=== PATIENT | female | born 1960 | race Caucasian/White ===

== ENCOUNTER → 2016-10-30 | Outpatient (CLI) | payer MEDICARE, MEDICAID ==
[~2016-10-30] MED LIST: ACYCLOVIR800 MG PO; AMBIEN10 MG PO; AMLODIPINE5 MG PO; BP MED; COLACE100 M1 PO; COZAAR; COZAAR50 MG PO; DANTRIUM PO; DURAGESIC75 MCG/PAT TD; GABAPENTIN100 MG PO; HCTZ 25MG25 MG PO; IMITREX100 M1 PO; LISINOPRIL/HCTZ1 TA2 PO; LISINOPRIL20 MG PO; MIRAPEX ER0.75 MG PO; NEUPRO1 EAC1 TD; PERCOCET 325 MG1 TA2 PO; PERCOCET 325 MG1 TAB PO; PHENERGAN W/CO120 M1 PO; POTASSIUM GLUC550 M1; ROBAXIN500 MG PO; SAVELLA50 MG PO; TAMIFLU75 MG PO; VITAMIN D 50,1.25 MG PO
== END ==
LOC: RAD 13:09
DX: Z98.1 Arthrodesis status (principal)

== ENCOUNTER 2017-03-13 13:00 | Outpatient (RCR) | payer MEDICARE, MEDICAID ==
[2016-10-03 13:50] VITALS: BP 122/66
== END 2017-03-13 23:00 | disposition home or self-care (01) ==
LOC: PT 13:00
DX: M54.5 Low back pain (principal)

== ENCOUNTER → 2017-07-23 | Outpatient (CLI) | payer MEDICARE, MEDICAID ==
[2016-10-03 13:50] VITALS: BP 122/66
== END ==
LOC: LAB 15:40
DX: Z86.39 Personal history of other endocrine, nutritional and metabolic disease (principal); E55.9 Vitamin D deficiency, unspecified; M25.50 Pain in unspecified joint; M54.9 Dorsalgia, unspecified

== ENCOUNTER → 2017-07-31 | Outpatient (CLI) | payer MEDICARE, MEDICAID ==
[2016-10-03 13:50] VITALS: BP 122/66
== END ==
LOC: LAB 13:31
DX: Z12.11 Encounter for screening for malignant neoplasm of colon (principal)

== ENCOUNTER → 2017-09-26 | Outpatient (CLI) | payer MEDICARE, MEDICAID ==
[2016-10-03 13:50] VITALS: BP 122/66
== END ==
LOC: RAD 13:43
DX: M25.552 Pain in left hip (principal); Z91.040 Latex allergy status; Z98.890 Other specified postprocedural states

== ENCOUNTER → 2017-10-22 | Outpatient (CLI) | payer MEDICARE, MEDICAID ==
[2016-10-03 13:50] VITALS: BP 122/66
[2017-10-22 08:44] LABS: HEMATOCRIT 41.3 % (37.0-47.0); HEMOGLOBIN 13.3 g/dL (12.5-16.0); MEAN PLATELET VOLUME 9.7 fl (7.4-10.4); RED BLOOD COUNT 4.65 M/mm3 (4.10-5.30); RED CELL DISTRIBUTION WIDTH 13.4 % (11.5-14.5); WHITE BLOOD COUNT 8.2 K/mm3 (4.8-10.8)
[2017-10-22 08:53] LABS: ALBUMIN 3.7 g/dL (3.5-5.0); BUN/CREATININE RATIO 17.2 (6.0-26.0); CALCIUM 9.1 mg/dL (8.4-10.2); POTASSIUM 3.6 mmol/L (3.6-5.0); TOTAL BILIRUBIN 0.5 mg/dL (0.2-1.3); TOTAL PROTEIN 6.4 g/dL (6.3-8.2)
[2017-10-23 22:06] LABS: ANA SCREEN with REFLEX Negative (Negative)
== END ==
LOC: LAB 07:33
PROVIDERS: Family Medicine
DX: I10 Essential (primary) hypertension (principal); E66.9 Obesity, unspecified

== ENCOUNTER → 2017-11-14 | Outpatient (CLI) | payer MEDICARE, MEDICAID ==
[2016-10-03 13:50] VITALS: BP 122/66
[2017-11-14 16:26] LABS: URINE APPEARANCE HAZY; URINE COLOR YELLOW
[2017-11-14 16:27] LABS: PH-URINE 5.5 (5.0 - 8.0); URINE BILIRUBIN NEGATIVE (NEGATIVE); URINE BLOOD NEGATIVE (NEGATIVE); URINE GLUCOSE NEGATIVE (NEGATIVE); URINE KETONE NEGATIVE (NEGATIVE); URINE LEUKOCYTE ESTERASE TRACE (NEGATIVE); URINE NITRATE NEGATIVE (NEGATIVE); URINE PROTEIN(semi-quant) NEGATIVE (NEGATIVE); URINE UROBILINOGEN NORMAL (NORMAL)
== END ==
LOC: RAD 14:33
PROVIDERS: Family Medicine
DX: N20.0 Calculus of kidney (principal); R10.9 Unspecified abdominal pain

== ENCOUNTER → 2018-05-30 | Outpatient (CLI) | payer MEDICARE ==
[2016-10-03 13:50] VITALS: BP 122/66
[2018-05-30 18:07] LABS: EOS # 0.2 (0.04-0.40); EOS % 3.1 % (1.0-5.0); HEMOGLOBIN 13.4 g/dL (12.5-16.0); LYMPH# 2.6 (1.50-4.00); MEAN CELL VOLUME 89 fl (78-100); MEAN CORPUSCULAR HEMOGLOBIN 29 pg (27-31); MEAN CORPUSCULAR HGB CONC 33 g/dL (33-37); MEAN PLATELET VOLUME 9.5 fl (7.4-10.4); MONO # 0.6 (0.20-0.80); NEU # 4.3 (1.40-6.50); PLATELET COUNT 248 K/mm3 (130-400); RED BLOOD COUNT 4.59 M/mm3 (4.10-5.30); RED CELL DISTRIBUTION WIDTH 13.6 % (11.5-14.5); WHITE BLOOD COUNT 7.8 K/mm3 (4.8-10.8)
[2018-05-30 18:22] LABS: ALBUMIN 4.2 g/dL (3.5-5.0); CALCIUM 9.8 mg/dL (8.4-10.2); POTASSIUM 4.1 mmol/L (3.6-5.0); TOTAL BILIRUBIN 0.4 mg/dL (0.2-1.3); TOTAL PROTEIN 7.3 g/dL (6.3-8.2)
[2018-05-30 18:45] LABS: URINE APPEARANCE HAZY; URINE BILIRUBIN NEGATIVE (NEGATIVE); URINE BLOOD TRACE (NEGATIVE); URINE COLOR YELLOW; URINE GLUCOSE NEGATIVE (NEGATIVE); URINE KETONE NEGATIVE (NEGATIVE); URINE LEUKOCYTE ESTERASE NEGATIVE (NEGATIVE); URINE NITRATE NEGATIVE (NEGATIVE); URINE PROTEIN(semi-quant) NEGATIVE (NEGATIVE); URINE UROBILINOGEN NORMAL (NORMAL)
== END ==
LOC: LAB 17:44
PROVIDERS: Nurse Practitioner Family
DX: E11.9 Type 2 diabetes mellitus without complications (principal); I10 Essential (primary) hypertension; R25.2 Cramp and spasm

== ENCOUNTER → 2018-06-12 | Outpatient (CLI) | payer MEDICARE ==
[2016-10-03 13:50] VITALS: BP 122/66
== END ==
LOC: RAD 13:36
DX: M79.672 Pain in left foot (principal)

== ENCOUNTER → 2019-02-26 | Outpatient (CLI) | payer MEDICARE, MEDICAID ==
[2016-10-03 13:50] VITALS: BP 122/66
[2019-02-26 15:33] LABS: URINE APPEARANCE HAZY; URINE BILIRUBIN NEGATIVE (NEGATIVE); URINE BLOOD NEGATIVE (NEGATIVE); URINE COLOR YELLOW; URINE GLUCOSE NEGATIVE (NEGATIVE); URINE KETONE NEGATIVE (NEGATIVE); URINE LEUKOCYTE ESTERASE NEGATIVE (NEGATIVE); URINE NITRATE NEGATIVE (NEGATIVE); URINE PROTEIN(semi-quant) NEGATIVE (NEGATIVE); URINE UROBILINOGEN NORMAL (NORMAL)
== END ==
LOC: RAD 14:22 → LAB 14:22
PROVIDERS: Family Medicine
DX: K76.0 Fatty (change of) liver, not elsewhere classified (principal); N39.0 Urinary tract infection, site not specified; N20.0 Calculus of kidney; K22.9 Disease of esophagus, unspecified; Z87.442 Personal history of urinary calculi

== ENCOUNTER → 2019-04-21 | Outpatient (CLI) | payer MEDICARE, MEDICAID ==
[2016-10-03 13:50] VITALS: BP 122/66
[2019-04-21 14:17] LABS: EOS # 0.2 (0.04-0.40); EOS % 3.1 % (1.0-5.0); HEMATOCRIT 42.9 % (37.0-47.0); LYMPH# 2.5 (1.50-4.00); MEAN CELL VOLUME 91 fl (78-100); MEAN CORPUSCULAR HEMOGLOBIN 30 pg (27-31); MEAN CORPUSCULAR HGB CONC 33 g/dL (33-37); MEAN PLATELET VOLUME 9.6 fl (7.4-10.4); MONO # 0.7 (0.20-0.80); PLATELET COUNT 270 K/mm3 (130-400); RED BLOOD COUNT 4.72 M/mm3 (4.10-5.30); RED CELL DISTRIBUTION WIDTH 13.6 % (11.5-14.5); WHITE BLOOD COUNT 7.4 K/mm3 (4.8-10.8)
[2019-04-21 14:24] LABS: ALBUMIN 4.1 g/dL (3.5-5.0); POTASSIUM 3.9 mmol/L (3.5-5.1)
[2019-04-21 14:25] LABS: CALCIUM 10.1 mg/dL (8.3-10.5)
[2019-04-21 14:27] LABS: TOTAL PROTEIN 7.3 g/dL (6.4-8.3)
[2019-04-21 14:29] LABS: TOTAL BILIRUBIN 0.4 mg/dL (0.2-1.2)
== END ==
LOC: RAD 14:04
PROVIDERS: Family Medicine
DX: R51 Headache (principal); E11.9 Type 2 diabetes mellitus without complications; I10 Essential (primary) hypertension; E78.5 Hyperlipidemia, unspecified

== ENCOUNTER → 2019-11-26 | Outpatient (CLI) | payer MEDICARE ==
[2016-10-03 13:50] VITALS: BP 122/66
== END ==
LOC: RAD 10:04
DX: M54.5 Low back pain (principal); G89.29 Other chronic pain; M25.551 Pain in right hip

== ENCOUNTER 2019-12-26 18:56 | Emergency (ER) | payer MEDICARE ==
[~2019-12-26] VITALS: Ht 167.6 cm; Wt 100.0 kg
[2019-12-26] MEDS ORDERED: METFORMIN ER500 MG PO (19:03)
[2019-12-26] MEDS ORDERED: LISINOPRIL AND1 TA2 PO (19:04)
[2019-12-26] MEDS ORDERED: PROAIR HFA0.09 MG/AC IH (19:05)
[2019-12-26 19:27] LABS: EOS # 0.2 (0.04-0.40); EOS % 2.2 % (1.0-5.0); HEMATOCRIT 45.3 % (37.0-47.0); HEMOGLOBIN 15.1 g/dL (12.5-16.0); LYMPH# 4.2 (1.50-4.00); MEAN CELL VOLUME 90 fl (78-100); MEAN CORPUSCULAR HEMOGLOBIN 30 pg (27-31); MEAN CORPUSCULAR HGB CONC 33 g/dL (33-37); MEAN PLATELET VOLUME 10.4 fl (7.4-10.4); MONO # 0.8 (0.20-0.80); NEU # 4.2 (1.40-6.50); PLATELET COUNT 317 K/mm3 (130-400); RED BLOOD COUNT 5.06 M/mm3 (4.10-5.30); RED CELL DISTRIBUTION WIDTH 12.6 % (11.5-14.5); WHITE BLOOD COUNT 9.4 K/mm3 (4.8-10.8)
[2019-12-26] MEDS ORDERED: CLINDAMYCIN PHOSPH2% VG (20:48)
[2019-12-26 21:07] VITALS: BP 142/82
== END 2019-12-26 21:07 | disposition home or self-care (01) ==
LOC: ED 18:56
PROVIDERS: Family Medicine
DX: L50.0 Allergic urticaria (principal); T37.3X5A Adverse effect of other antiprotozoal drugs, initial encounter; E11.9 Type 2 diabetes mellitus without complications; I10 Essential (primary) hypertension; K21.9 Gastro-esophageal reflux disease without esophagitis; G43.909 Migraine, unspecified, not intractable, without status migrainosus; M54.9 Dorsalgia, unspecified; G89.29 Other chronic pain; Z79.84 Long term (current) use of oral hypoglycemic drugs; Z79.899 Other long term (current) drug therapy
CPT/HCPCS: J1200; J2920; J3490

== ENCOUNTER → 2020-02-24 | Outpatient (CLI) | payer MEDICARE ==
[~2020-02-24] MED LIST changes: +CLINDAMYCIN PHOSPH2% VG; +LISINOPRIL AND1 TA2 PO; +METFORMIN ER500 MG PO; +PROAIR HFA0.09 MG/AC IH
[2020-02-24 15:19] LABS: EOS # 0.1 (0.04-0.40); EOS % 1.7 % (1.0-5.0); HEMATOCRIT 42.2 % (37.0-47.0); HEMOGLOBIN 14.3 g/dL (12.5-16.0); LYMPH# 2.4 (1.50-4.00); MEAN CELL VOLUME 87 fl (78-100); MEAN CORPUSCULAR HEMOGLOBIN 30 pg (27-31); MEAN CORPUSCULAR HGB CONC 34 g/dL (33-37); MEAN PLATELET VOLUME 9.7 fl (7.4-10.4); MONO # 0.6 (0.20-0.80); NEU # 3.3 (1.40-6.50); PLATELET COUNT 258 K/mm3 (130-400); RED BLOOD COUNT 4.84 M/mm3 (4.10-5.30); RED CELL DISTRIBUTION WIDTH 12.7 % (11.5-14.5); WHITE BLOOD COUNT 6.5 K/mm3 (4.8-10.8)
[2020-02-24 15:45] LABS: ALBUMIN 4.2 g/dL (3.5-5.0); POTASSIUM 3.5 mmol/L (3.5-5.1)
[2020-02-24 15:46] LABS: CALCIUM 9.9 mg/dL (8.3-10.5)
[2020-02-24 15:49] LABS: TOTAL BILIRUBIN 0.5 mg/dL (0.2-1.2)
== END ==
LOC: LAB 14:52
PROVIDERS: Family Medicine
DX: R42 Dizziness and giddiness (principal); R53.83 Other fatigue

== ENCOUNTER 2020-03-25 10:00 | Outpatient (RCR) | payer MEDICARE | END 2020-03-25 10:30 | disposition still patient (30) | LOC: PT 10:00 | DX: Z98.890 Other specified postprocedural states (principal) ==

== ENCOUNTER → 2020-04-02 | Outpatient (CLI) | payer MEDICARE | LOC: LAB 09:09 | DX: E11.9 Type 2 diabetes mellitus without complications (principal) ==

== ENCOUNTER → 2020-08-04 | Outpatient (CLI) | payer MEDICARE ==
[2020-08-04 12:45] LABS: EOS # 0.2 (0.04-0.40); EOS % 2.7 % (1.0-5.0); HEMATOCRIT 43.2 % (37.0-47.0); HEMOGLOBIN 14.2 g/dL (12.5-16.0); LYMPH# 3.3 (1.50-4.00); MEAN CELL VOLUME 90 fl (78-100); MEAN CORPUSCULAR HEMOGLOBIN 30 pg (27-31); MEAN CORPUSCULAR HGB CONC 33 g/dL (33-37); MEAN PLATELET VOLUME 9.4 fl (7.4-10.4); MONO # 0.6 (0.20-0.80); NEU # 2.9 (1.40-6.50); PLATELET COUNT 277 K/mm3 (130-400); RED BLOOD COUNT 4.82 M/mm3 (4.10-5.30); RED CELL DISTRIBUTION WIDTH 12.7 % (11.5-14.5); WHITE BLOOD COUNT 6.9 K/mm3 (4.8-10.8)
[2020-08-04 12:51] LABS: POTASSIUM 3.4 mmol/L (3.5-5.1)
[2020-08-04 12:52] LABS: ALBUMIN 4.4 g/dL (3.5-5.0)
[2020-08-04 12:53] LABS: CALCIUM 9.7 mg/dL (8.3-10.5)
[2020-08-04 12:54] LABS: TOTAL PROTEIN 7.7 g/dL (6.4-8.3)
[2020-08-04 12:56] LABS: TOTAL BILIRUBIN 0.4 mg/dL (0.2-1.2)
[2020-08-04 13:01] LABS: MAGNESIUM 2.05 mg/dL (1.60-2.60)
[2020-08-04 13:21] LABS: URINE APPEARANCE CLEAR; URINE BILIRUBIN NEGATIVE (NEGATIVE); URINE BLOOD NEGATIVE (NEGATIVE); URINE COLOR YELLOW; URINE GLUCOSE NEGATIVE (NEGATIVE); URINE KETONE NEGATIVE (NEGATIVE); URINE LEUKOCYTE ESTERASE TRACE (NEGATIVE); URINE NITRATE NEGATIVE (NEGATIVE); URINE PROTEIN(semi-quant) NEGATIVE (NEGATIVE); URINE UROBILINOGEN NORMAL (NORMAL)
[2020-08-04 13:46] LABS: ERYTHROCYTE SEDIMENTATION RATE 5 mm/hr (0-30)
== END ==
LOC: LAB 12:20
PROVIDERS: Internal Medicine
DX: I10 Essential (primary) hypertension (principal); K90.9 Intestinal malabsorption, unspecified; E11.9 Type 2 diabetes mellitus without complications

== ENCOUNTER 2020-09-27 14:30 | Outpatient (RCR) | payer MEDICARE | END 2020-10-11 | disposition home or self-care (01) | LOC: PT | DX: M76.31 Iliotibial band syndrome, right leg (principal) ==

== ENCOUNTER → 2020-12-01 | Outpatient (CLI) | payer MEDICARE, MEDICAID ==
[~2020-12-01] MED LIST changes: +COMBIVENT RESPI1 SPR IH; +OMEPRAZOLE40 MG PO; +ROPINIROLE HYD0.5 MG
[2020-12-01 20:51] LABS: URINE APPEARANCE CLEAR; URINE BILIRUBIN NEGATIVE (NEGATIVE); URINE BLOOD NEGATIVE (NEGATIVE); URINE COLOR YELLOW; URINE GLUCOSE 50 mg/dL mg/dL (NEGATIVE); URINE KETONE NEGATIVE (NEGATIVE); URINE LEUKOCYTE ESTERASE NEGATIVE (NEGATIVE); URINE NITRATE NEGATIVE (NEGATIVE); URINE PROTEIN(semi-quant) NEGATIVE (NEGATIVE); URINE UROBILINOGEN NORMAL (NORMAL)
[2020-12-01 20:52] LABS: ALBUMIN 4.4 g/dL (3.5-5.0); ALT/SGPT 30 U/L (0-55); AST-SGOT 28 U/L (5-34); CARBON DIOXIDE 28 mmol/L (22-29); GLUCOSE 261 mg/dL (65-105); POTASSIUM 3.5 mmol/L (3.5-5.1); SODIUM 140 mmol/L (136-145); TOTAL BILIRUBIN 0.4 mg/dL (0.2-1.2); TOTAL PROTEIN 7.6 g/dL (6.4-8.3); TROPONIN-I < 0.03 ng/mL (<0.030)
[2020-12-01 21:01] LABS: EOS % 1.7 % (1.0-5.0); HEMATOCRIT 45.4 % (37.0-47.0); HEMOGLOBIN 14.6 g/dL (12.5-16.0); LYMPH# 2.6 (1.50-4.00); MEAN CELL VOLUME 90 fl (78-100); MEAN CORPUSCULAR HEMOGLOBIN 29 pg (27-31); MEAN CORPUSCULAR HGB CONC 32 g/dL (33-37); MEAN PLATELET VOLUME 11.3 fl (7.4-10.4); MONO # 0.6 (0.20-0.80); NEU # 4.7 (1.40-6.50); PLATELET COUNT 315 K/mm3 (130-400); RED BLOOD COUNT 5.05 M/mm3 (4.10-5.30)
[2020-12-01 21:02] LABS: EOS # 0.1 (0.04-0.40)
== END ==
LOC: LAB 14:43
PROVIDERS: Family Medicine
DX: I10 Essential (primary) hypertension (principal); E13.9 Other specified diabetes mellitus without complications; R30.9 Painful micturition, unspecified; R07.9 Chest pain, unspecified

== ENCOUNTER 2021-03-05 09:31 | Emergency (ER) | payer MEDICARE, MEDICAID ==
[~2021-03-05 09:31] MED LIST changes: -COMBIVENT RESPI1 SPR IH; -OMEPRAZOLE40 MG PO; -ROPINIROLE HYD0.5 MG
[2021-03-05 10:26] LABS: BASO # 0.05 (0.02-0.10); EOS # 0.21 (0.04-0.40); EOS % 3.6 % (1.0-5.0); HEMATOCRIT 40.6 % (37.0-47.0); HEMOGLOBIN 13.9 g/dL (12.5-16.0); LYMPH# 2.76 (1.50-4.00); MEAN CELL VOLUME 87 fl (78-100); MEAN CORPUSCULAR HEMOGLOBIN 30 pg (27-31); MEAN CORPUSCULAR HGB CONC 34 g/dL (33-37); MEAN PLATELET VOLUME 9.5 fl (7.4-10.4); MONO # 0.61 (0.20-0.80); NEU # 2.27 (1.40-6.50); PLATELET COUNT 235 K/mm3 (130-400); RED BLOOD COUNT 4.65 M/mm3 (4.10-5.30); RED CELL DISTRIBUTION WIDTH 12.4 % (11.5-14.5); WHITE BLOOD COUNT 5.9 K/mm3 (4.8-10.8)
[2021-03-05 10:38] LABS: POTASSIUM 3.6 mmol/L (3.5-5.1); SODIUM 139 mmol/L (136-145)
[2021-03-05 10:40] LABS: CALCIUM 9.6 mg/dL (8.3-10.5); GLUCOSE 232 mg/dL (65-105)
[2021-03-05 10:42] LABS: CARBON DIOXIDE 26 mmol/L (22-29)
[2021-03-05 10:53] LABS: TROPONIN-I < 0.03 ng/mL (<0.030)
[2021-03-05] MEDS ORDERED: ROPINIROLE HYD0.5 MG (11:13)
[2021-03-05] MEDS ORDERED: OMEPRAZOLE40 MG PO (11:13)
[2021-03-05] MEDS ORDERED: NEUPRO1 EAC1 TD (11:42)
[2021-03-05] MEDS ORDERED: PERCOCET 325 MG1 TA2 PO (11:42)
[2021-03-05 12:13] VITALS: BP 136/66
== END 2021-03-05 12:21 | disposition home or self-care (01) ==
LOC: ED 09:31
PROVIDERS: Family Medicine
DX: R06.00 Dyspnea, unspecified (principal); M25.511 Pain in right shoulder; E11.9 Type 2 diabetes mellitus without complications; I10 Essential (primary) hypertension; G43.909 Migraine, unspecified, not intractable, without status migrainosus; Z20.822 Contact with and (suspected) exposure to COVID-19; Z98.890 Other specified postprocedural states; Z79.84 Long term (current) use of oral hypoglycemic drugs; Z79.891 Long term (current) use of opiate analgesic; Z79.899 Other long term (current) drug therapy

== ENCOUNTER 2021-03-16 14:17 | Outpatient (RCR) | payer MEDICARE, MEDICAID ==
[~2021-03-16 14:17] MED LIST changes: +OMEPRAZOLE40 MG PO; +ROPINIROLE HYD0.5 MG
== END 2021-06-14 | disposition still patient (30) ==
LOC: PT
DX: M79.604 Pain in right leg (principal)

== ENCOUNTER → 2021-03-28 | Outpatient (CLI) | payer MEDICARE, MEDICAID ==
[~2021-03-28] MED LIST changes: +COMBIVENT RESPI1 SPR IH
== END ==
LOC: RAD 03-25 10:00 → VAS 10:03 → RAD 10:03
DX: M25.511 Pain in right shoulder (principal); M79.604 Pain in right leg

== ENCOUNTER 2021-05-02 14:17 | Outpatient (RCR) | payer MEDICARE, MEDICAID ==
[~2021-05-02 14:17] MED LIST changes: -COMBIVENT RESPI1 SPR IH
== END 2021-07-31 | disposition home or self-care (01) ==
LOC: PT
DX: M25.511 Pain in right shoulder (principal)

== ENCOUNTER 2021-06-17 11:00 | Outpatient (RCR) | payer MEDICARE, MEDICAID ==
[2021-08-14] MEDS ORDERED: COMBIVENT RESPI1 SPR IH (19:46)
== END 2021-09-15 | disposition still patient (30) ==
LOC: PT
DX: M79.604 Pain in right leg (principal)

== ENCOUNTER → 2021-07-11 | Day surgery (SDC) | payer MEDICARE, MEDICAID ==
[~2021-07-11] MED LIST changes: +COMBIVENT RESPI1 SPR IH
== END ==
LOC: MSO 07:10
DX: K59.00 Constipation, unspecified (principal); K57.30 Diverticulosis of large intestine without perforation or abscess without bleeding; E11.9 Type 2 diabetes mellitus without complications; G25.81 Restless legs syndrome; G43.909 Migraine, unspecified, not intractable, without status migrainosus; G89.29 Other chronic pain; Z79.84 Long term (current) use of oral hypoglycemic drugs; Z79.899 Other long term (current) drug therapy; Z79.891 Long term (current) use of opiate analgesic
CPT/HCPCS: 00812; J2704; J7120

== ENCOUNTER 2021-07-14 20:16 | Emergency (ER) | payer MEDICARE, MEDICAID ==
[~2021-07-14 20:16] MED LIST changes: -COMBIVENT RESPI1 SPR IH
[2021-07-14 21:41] LABS: BASO # 0.02 K/mm3 (0.02-0.10); HEMATOCRIT 48.2 % (37.0-47.0); HEMOGLOBIN 15.7 g/dL (12.5-16.0); MEAN CELL VOLUME 91 fl (78-100); MEAN CORPUSCULAR HEMOGLOBIN 30 pg (27-31); MEAN CORPUSCULAR HGB CONC 33 g/dL (33-37); MEAN PLATELET VOLUME 8.9 fl (7.4-10.4); MONO # 0.07 K/mm3 (0.20-0.80); PLATELET COUNT 298 K/mm3 (130-400); RED BLOOD COUNT 5.28 M/mm3 (4.10-5.30); RED CELL DISTRIBUTION WIDTH 12.8 % (11.5-14.5); WHITE BLOOD COUNT 7.6 K/mm3 (4.8-10.8)
[2021-07-14 21:53] LABS: ALBUMIN 4.7 g/dL (3.5-5.0); POTASSIUM 4.1 mmol/L (3.5-5.1)
[2021-07-14 21:55] LABS: CALCIUM 10.8 mg/dL (8.3-10.5)
[2021-07-14 21:56] LABS: TOTAL PROTEIN 8.4 g/dL (6.4-8.3)
[2021-07-14 21:58] LABS: TOTAL BILIRUBIN 0.5 mg/dL (0.2-1.2)
[2021-07-14 22:08] LABS: URINE APPEARANCE HAZY; URINE BILIRUBIN NEGATIVE (NEGATIVE); URINE BLOOD NEGATIVE (NEGATIVE); URINE COLOR YELLOW; URINE KETONE NEGATIVE (NEGATIVE); URINE LEUKOCYTE ESTERASE NEGATIVE (NEGATIVE); URINE NITRATE NEGATIVE (NEGATIVE); URINE PROTEIN(semi-quant) NEGATIVE (NEGATIVE); URINE UROBILINOGEN NORMAL (NORMAL)
[2021-07-14 23:39] VITALS: BP 164/97
== END 2021-07-14 23:46 | disposition home or self-care (01) ==
LOC: ED 20:16
PROVIDERS: Nurse Practitioner Family
DX: E11.65 Type 2 diabetes mellitus with hyperglycemia (principal); I10 Essential (primary) hypertension; E66.9 Obesity, unspecified; G43.909 Migraine, unspecified, not intractable, without status migrainosus; M54.9 Dorsalgia, unspecified; G89.29 Other chronic pain; Z79.84 Long term (current) use of oral hypoglycemic drugs; Z79.891 Long term (current) use of opiate analgesic; Z79.899 Other long term (current) drug therapy
CPT/HCPCS: J7030

== ENCOUNTER → 2021-08-13 | Outpatient (CLI) | payer MEDICARE, MEDICAID ==
[~2021-08-13] MED LIST changes: +COMBIVENT RESPI1 SPR IH
== END ==
LOC: LAB 16:17
DX: Z20.822 Contact with and (suspected) exposure to COVID-19 (principal)

== ENCOUNTER 2021-08-14 16:27 | Emergency (ER) | payer MEDICARE, MEDICAID ==
[~2021-08-14] VITALS: Ht 167.6 cm; Wt 91.4 kg
[~2021-08-14 16:27] MED LIST changes: -COMBIVENT RESPI1 SPR IH
[2021-08-14 17:04] LABS: BASO # 0.02 K/mm3 (0.02-0.10); EOS # 0.13 K/mm3 (0.04-0.40); EOS % 1.8 % (1.0-5.0); HEMATOCRIT 44.7 % (37.0-47.0); HEMOGLOBIN 14.9 g/dL (12.5-16.0); LYMPH# 1.27 K/mm3 (1.50-4.00); MEAN CELL VOLUME 90 fl (78-100); MEAN CORPUSCULAR HEMOGLOBIN 30 pg (27-31); MEAN CORPUSCULAR HGB CONC 33 g/dL (33-37); MEAN PLATELET VOLUME 8.9 fl (7.4-10.4); MONO # 0.89 K/mm3 (0.20-0.80); NEU # 4.86 K/mm3 (1.40-6.50); PLATELET COUNT 241 K/mm3 (130-400); RED BLOOD COUNT 4.96 M/mm3 (4.10-5.30); RED CELL DISTRIBUTION WIDTH 12.6 % (11.5-14.5); WHITE BLOOD COUNT 7.2 K/mm3 (4.8-10.8)
[2021-08-14 17:18] LABS: POTASSIUM 3.7 mmol/L (3.5-5.1); SODIUM 140 mmol/L (136-145)
[2021-08-14 17:20] LABS: GLUCOSE 161 mg/dL (65-105); TOTAL PROTEIN 7.3 g/dL (6.4-8.3)
[2021-08-14 17:21] LABS: CARBON DIOXIDE 21 mmol/L (22-29)
[2021-08-14 17:22] LABS: TOTAL BILIRUBIN 0.5 mg/dL (0.2-1.2)
[2021-08-14 17:26] LABS: AST-SGOT 15 U/L (5-34)
[2021-08-14 17:27] LABS: ALT/SGPT 18 U/L (0-55)
[2021-08-14 17:36] LABS: TROPONIN-I < 0.03 ng/mL (<0.030)
[2021-08-14 17:41] LABS: D-DIMER 0.28 mg/L FEU (0.15-0.50)
[2021-08-14 18:10] LABS: URINE APPEARANCE CLEAR; URINE BILIRUBIN NEGATIVE (NEGATIVE); URINE BLOOD NEGATIVE (NEGATIVE); URINE COLOR YELLOW; URINE GLUCOSE NEGATIVE (NEGATIVE); URINE KETONE NEGATIVE (NEGATIVE); URINE LEUKOCYTE ESTERASE NEGATIVE (NEGATIVE); URINE NITRATE NEGATIVE (NEGATIVE); URINE PROTEIN(semi-quant) TRACE mg/dL (NEGATIVE); URINE UROBILINOGEN NORMAL (NORMAL)
[2021-08-14] MEDS ORDERED: COMBIVENT RESPI1 SPR IH (19:46)
[2021-08-14 20:05] VITALS: BP 165/89
== END 2021-08-14 20:05 | disposition home or self-care (01) ==
LOC: ED 16:27
PROVIDERS: Family Medicine
DX: J45.909 Unspecified asthma, uncomplicated (principal); M54.9 Dorsalgia, unspecified; G89.29 Other chronic pain; G20 Parkinson's disease; E11.9 Type 2 diabetes mellitus without complications; I10 Essential (primary) hypertension; G43.909 Migraine, unspecified, not intractable, without status migrainosus; Z79.84 Long term (current) use of oral hypoglycemic drugs; Z79.899 Other long term (current) drug therapy
CPT/HCPCS: J0360

== ENCOUNTER → 2021-09-21 | Outpatient (CLI) | payer MEDICARE, MEDICAID ==
[~2021-09-21] MED LIST changes: +COMBIVENT RESPI1 SPR IH
== END ==
LOC: VAS 11:46
DX: I73.9 Peripheral vascular disease, unspecified (principal)

== ENCOUNTER → 2022-01-09 | Outpatient (CLI) | payer MEDICARE, MEDICAID ==
[2022-01-09 12:00] LABS: BASO # 0.03 K/mm3 (0.02-0.10); EOS # 0.19 K/mm3 (0.04-0.40); HEMATOCRIT 40.8 % (37.0-47.0); HEMOGLOBIN 13.8 g/dL (12.5-16.0); LYMPH# 2.27 K/mm3 (1.50-4.00); MEAN CELL VOLUME 88 fl (78-100); MEAN CORPUSCULAR HEMOGLOBIN 30 pg (27-31); MEAN CORPUSCULAR HGB CONC 34 g/dL (33-37); MEAN PLATELET VOLUME 9.5 fl (7.4-10.4); PLATELET COUNT 245 K/mm3 (130-400); RED BLOOD COUNT 4.66 M/mm3 (4.10-5.30); RED CELL DISTRIBUTION WIDTH 12.2 % (11.5-14.5); WHITE BLOOD COUNT 6.3 K/mm3 (4.8-10.8)
[2022-01-09 13:02] LABS: POTASSIUM 3.5 mmol/L (3.5-5.1)
[2022-01-09 13:03] LABS: CALCIUM 9.5 mg/dL (8.3-10.5)
[2022-01-09 13:04] LABS: TOTAL PROTEIN 6.7 g/dL (6.4-8.3)
[2022-01-09 13:06] LABS: TOTAL BILIRUBIN 0.5 mg/dL (0.2-1.2)
[2022-01-09 22:03] LABS: FOLATE (FOLIC ACID) 15.2 ng/mL (2.0-20.0)
== END ==
LOC: LAB 11:15
PROVIDERS: Family Medicine
DX: Z00.00 Encounter for general adult medical examination without abnormal findings (principal); G64 Other disorders of peripheral nervous system; E78.5 Hyperlipidemia, unspecified; E55.9 Vitamin D deficiency, unspecified; E13.9 Other specified diabetes mellitus without complications; I10 Essential (primary) hypertension; J30.9 Allergic rhinitis, unspecified; K21.9 Gastro-esophageal reflux disease without esophagitis; G43.909 Migraine, unspecified, not intractable, without status migrainosus; E66.9 Obesity, unspecified; G25.81 Restless legs syndrome

== ENCOUNTER → 2022-01-10 | Outpatient (CLI) | payer MEDICARE, MEDICAID | LOC: LAB 15:09 | DX: Z00.00 Encounter for general adult medical examination without abnormal findings (principal); J30.9 Allergic rhinitis, unspecified; I10 Essential (primary) hypertension; G89.29 Other chronic pain; E13.9 Other specified diabetes mellitus without complications; K21.9 Gastro-esophageal reflux disease without esophagitis; G43.909 Migraine, unspecified, not intractable, without status migrainosus; E66.9 Obesity, unspecified; G25.81 Restless legs syndrome; G64 Other disorders of peripheral nervous system; E78.5 Hyperlipidemia, unspecified; E55.9 Vitamin D deficiency, unspecified ==

== ENCOUNTER → 2022-01-23 | Outpatient (CLI) | payer MEDICARE, MEDICAID | LOC: RAD 10:53 | DX: M67.813 Other specified disorders of tendon, right shoulder (principal); Z98.890 Other specified postprocedural states; M75.52 Bursitis of left shoulder; M19.012 Primary osteoarthritis, left shoulder; M77.8 Other enthesopathies, not elsewhere classified ==

== ENCOUNTER 2022-02-14 13:00 | Outpatient (RCR) | payer MEDICARE, MEDICAID | END 2022-03-07 | disposition home or self-care (01) | LOC: PT | DX: M79.18 Myalgia, other site (principal) ==

== ENCOUNTER 2022-03-08 14:10 | Outpatient (RCR) | payer MEDICARE, MEDICAID ==
[2022-03-31] MEDS ORDERED: METOPROLOL SUCC50 M1 PO (10:40)
[2022-03-31] MEDS ORDERED: SUMATRIPTAN SU100 MG PO (10:41)
[2022-03-31] MEDS ORDERED: OZEMPIC1 MG/0.71 SQ (10:41)
[2022-03-31] MEDS ORDERED: NORVASC 5MG5 MG/TAB PO (13:01)
== END 2022-04-06 ==
LOC: PT
DX: M79.18 Myalgia, other site (principal)

== ENCOUNTER → 2022-03-28 | Outpatient (CLI) | payer MEDICARE, MEDICAID ==
[~2022-03-28] MED LIST changes: +METOPROLOL SUCC50 M1 PO; +NORVASC 5MG5 MG/TAB PO; +OZEMPIC1 MG/0.71 SQ; +SUMATRIPTAN SU100 MG PO
== END ==
LOC: RAD 11:51
DX: M19.072 Primary osteoarthritis, left ankle and foot (principal)

== ENCOUNTER 2022-03-31 10:25 | Emergency (ER) | payer MEDICARE, MEDICAID ==
[~2022-03-31 10:25] MED LIST changes: -METOPROLOL SUCC50 M1 PO; -NORVASC 5MG5 MG/TAB PO; -OZEMPIC1 MG/0.71 SQ; -SUMATRIPTAN SU100 MG PO
[2022-03-31] MEDS ORDERED: METOPROLOL SUCC50 M1 PO (10:40)
[2022-03-31] MEDS ORDERED: OZEMPIC1 MG/0.71 SQ (10:41)
[2022-03-31] MEDS ORDERED: SUMATRIPTAN SU100 MG PO (10:41)
[2022-03-31 11:15] LABS: BASO # 0.02 K/mm3 (0.02-0.10); EOS # 0.09 K/mm3 (0.04-0.40); EOS % 1.3 % (1.0-5.0); HEMATOCRIT 43.7 % (37.0-47.0); HEMOGLOBIN 14.5 g/dL (12.5-16.0); LYMPH# 2.45 K/mm3 (1.50-4.00); MEAN CELL VOLUME 90 fl (78-100); MEAN CORPUSCULAR HEMOGLOBIN 30 pg (27-31); MEAN CORPUSCULAR HGB CONC 33 g/dL (33-37); MONO # 0.58 K/mm3 (0.20-0.80); NEU # 3.72 K/mm3 (1.40-6.50); PLATELET COUNT 264 K/mm3 (130-400); RED BLOOD COUNT 4.86 M/mm3 (4.10-5.30); RED CELL DISTRIBUTION WIDTH 12.8 % (11.5-14.5); WHITE BLOOD COUNT 6.9 K/mm3 (4.8-10.8)
[2022-03-31 11:34] LABS: ALBUMIN 4.1 g/dL (3.5-5.0)
[2022-03-31 11:35] LABS: POTASSIUM 3.8 mmol/L (3.5-5.1); SODIUM 143 mmol/L (136-145)
[2022-03-31 11:36] LABS: CALCIUM 9.8 mg/dL (8.3-10.5)
[2022-03-31 11:37] LABS: GLUCOSE 125 mg/dL (65-105); TOTAL PROTEIN 6.8 g/dL (6.4-8.3)
[2022-03-31 11:38] LABS: CARBON DIOXIDE 26 mmol/L (22-29)
[2022-03-31 11:39] LABS: TOTAL BILIRUBIN 0.5 mg/dL (0.2-1.2)
[2022-03-31 11:42] LABS: AST-SGOT 13 U/L (5-34)
[2022-03-31 11:43] LABS: ALT/SGPT 19 U/L (0-55)
[2022-03-31 12:04] LABS: TROPONIN-I < 0.030 ng/mL (<0.030)
[2022-03-31] MEDS ORDERED: NORVASC 5MG5 MG/TAB PO (13:01)
[2022-03-31 13:11] VITALS: BP 192/98
[2022-03-31 13:14] LABS: URINE APPEARANCE CLEAR; URINE BILIRUBIN NEGATIVE (NEGATIVE); URINE BLOOD NEGATIVE (NEGATIVE); URINE COLOR YELLOW; URINE GLUCOSE NEGATIVE (NEGATIVE); URINE KETONE NEGATIVE (NEGATIVE); URINE LEUKOCYTE ESTERASE TRACE (NEGATIVE); URINE MUCUS PRESENT (NOT PRESENT); URINE NITRATE NEGATIVE (NEGATIVE); URINE PROTEIN(semi-quant) NEGATIVE (NEGATIVE); URINE UROBILINOGEN NORMAL (NORMAL)
== END 2022-03-31 13:13 | disposition home or self-care (01) ==
LOC: ED 10:25
PROVIDERS: Nurse Practitioner
DX: I16.0 Hypertensive urgency (principal); E66.9 Obesity, unspecified; Z91.040 Latex allergy status

== ENCOUNTER → 2022-04-05 | Outpatient (CLI) | payer MEDICARE, MEDICAID ==
[~2022-04-05] MED LIST changes: +METOPROLOL SUCC50 M1 PO; +NORVASC 5MG5 MG/TAB PO; +OZEMPIC1 MG/0.71 SQ; +SUMATRIPTAN SU100 MG PO
== END ==
LOC: RAD 13:30
DX: N20.0 Calculus of kidney (principal)

== ENCOUNTER → 2022-04-11 | Outpatient (CLI) | payer MEDICARE, MEDICAID | LOC: LAB 13:02 | DX: E13.9 Other specified diabetes mellitus without complications (principal) ==

== ENCOUNTER → 2022-06-02 | Outpatient (CLI) | payer MEDICARE, MEDICAID | LOC: RAD 10:59 | DX: M25.551 Pain in right hip (principal); M25.552 Pain in left hip; R10.9 Unspecified abdominal pain ==

== ENCOUNTER → 2022-06-27 | Outpatient (CLI) | payer MEDICARE, MEDICAID | LOC: RAD 10:23 | DX: K57.30 Diverticulosis of large intestine without perforation or abscess without bleeding (principal); N20.0 Calculus of kidney ==

== ENCOUNTER 2023-09-12 13:00 | Outpatient (RCR) | payer MEDICARE, MEDICAID ==
[~2023-09-12 13:00] MED LIST changes: +DOCUSATE SODIUM1 TA2 PO; +MIRALAX17 GM PO
== END 2023-10-07 | disposition home or self-care (01) ==
LOC: PT
DX: Z09 Encounter for follow-up examination after completed treatment for conditions other than malignant neoplasm (principal); Z98.890 Other specified postprocedural states

== ENCOUNTER → 2023-10-29 | Outpatient (CLI) | payer MEDICARE ==
[~2023-10-29] MED LIST changes: +AMOXICILLIN AND1 TA2 PO; +HYDROCHLOROTHIA1 T15 PO; +POTASSIUM CHLO20 ME4 PO; +TOPCARE OMEPRAZ20 MG PO
== END ==
LOC: LAB 16:54
DX: R82.90 Unspecified abnormal findings in urine (principal)

== ENCOUNTER 2023-11-09 21:09 | Emergency (ER) | payer MEDICARE ==
[~2023-11-09] VITALS: Ht 167.6 cm; Wt 84.1 kg
[~2023-11-09 21:09] MED LIST changes: -AMOXICILLIN AND1 TA2 PO; -HYDROCHLOROTHIA1 T15 PO; -POTASSIUM CHLO20 ME4 PO; -TOPCARE OMEPRAZ20 MG PO
[2023-11-09 22:09] LABS: BASO # 0.02 K/mm3 (0.02-0.10); EOS # 0.24 K/mm3 (0.04-0.40); EOS % 3.9 % (1.0-5.0); HEMATOCRIT 38.8 % (37.0-47.0); HEMOGLOBIN 13.1 g/dL (12.5-16.0); LYMPH# 2.52 K/mm3 (1.50-4.00); MEAN CELL VOLUME 88 fl (78-100); MEAN CORPUSCULAR HEMOGLOBIN 30 pg (27-31); MEAN CORPUSCULAR HGB CONC 34 g/dL (33-37); MEAN PLATELET VOLUME 9.1 fl (7.4-10.4); NEU # 2.81 K/mm3 (1.40-6.50); PLATELET COUNT 233 K/mm3 (130-400); RED CELL DISTRIBUTION WIDTH 12.2 % (11.5-14.5); WHITE BLOOD COUNT 6.1 K/mm3 (4.8-10.8)
[2023-11-09 22:19] LABS: ALBUMIN 4.1 g/dL (3.4-4.8)
[2023-11-09 22:20] LABS: CALCIUM 9.7 mg/dL (8.3-10.5)
[2023-11-09 22:21] LABS: TOTAL PROTEIN 6.6 g/dL (6.2-8.1)
[2023-11-09 22:23] LABS: TOTAL BILIRUBIN 0.3 mg/dL (0.2-1.2)
[2023-11-09] MEDS ORDERED: HYDROCHLOROTHIA1 T15 PO (22:54)
[2023-11-09 22:55] VITALS: BP 154/91
[2023-11-09] MEDS ORDERED: TOPCARE OMEPRAZ20 MG PO (23:04)
[2023-11-09] MEDS ORDERED: AMOXICILLIN AND1 TA2 PO (23:04)
[2023-11-09] MEDS ORDERED: POTASSIUM CHLO20 ME4 PO (23:04)
== END 2023-11-09 23:35 | disposition home or self-care (01) ==
LOC: ED 21:09
PROVIDERS: Family Medicine
DX: K57.92 Diverticulitis of intestine, part unspecified, without perforation or abscess without bleeding (principal); E87.6 Hypokalemia; E66.9 Obesity, unspecified; Z91.040 Latex allergy status

== ENCOUNTER 2023-11-19 00:27 | Emergency (ER) | payer MEDICARE ==
[~2023-11-19] VITALS: Ht 167.6 cm; Wt 81.8 kg
[~2023-11-19 00:27] MED LIST changes: +AMOXICILLIN AND1 TA2 PO; +HYDROCHLOROTHIA1 T15 PO; +POTASSIUM CHLO20 ME4 PO; +TOPCARE OMEPRAZ20 MG PO
[2023-11-19 00:35] VITALS: BP 178/99
[2023-11-19] MEDS ORDERED: VOLTAREN ARTHRI20 GM (00:47)
== END 2023-11-19 02:07 | disposition home or self-care (01) ==
LOC: ED 00:27
DX: S80.01XA Contusion of right knee, initial encounter (principal); S80.02XA Contusion of left knee, initial encounter; E66.9 Obesity, unspecified; Z68.29 Body mass index [BMI] 29.0-29.9, adult; Z91.040 Latex allergy status; Z87.891 Personal history of nicotine dependence; W17.89XA Other fall from one level to another, initial encounter; Y92.009 Unspecified place in unspecified non-institutional (private) residence as the place of occurrence of the external cause
CPT/HCPCS: 15976; L1830

== ENCOUNTER → 2024-01-17 | Outpatient (CLI) | payer MEDICARE ==
[~2024-01-17] MED LIST changes: +VOLTAREN ARTHRI20 GM
== END ==
LOC: LAB 15:06
PROVIDERS: Family Medicine
DX: E11.9 Type 2 diabetes mellitus without complications (principal)

== ENCOUNTER → 2024-04-04 | Outpatient (CLI) | payer MEDICARE | LOC: RAD 10:12 | DX: E04.1 Nontoxic single thyroid nodule (principal); R42 Dizziness and giddiness ==

== ENCOUNTER → 2024-05-27 | Outpatient (CLI) | payer MEDICARE | LOC: LAB 10:31 → RAD 10:31 | DX: M19.012 Primary osteoarthritis, left shoulder (principal); M25.462 Effusion, left knee; E04.1 Nontoxic single thyroid nodule ==

== ENCOUNTER → 2024-05-29 | Outpatient (CLI) | payer MEDICARE | LOC: RAD 14:16 | DX: M25.462 Effusion, left knee (principal); R07.81 Pleurodynia ==

== ENCOUNTER → 2024-05-30 | Outpatient (REF) | payer MEDICARE ==
[~2024-05-30] MED LIST changes: +CYCLOBENZAPRINE10 M1 PO; +IBUPROFEN600 M1 PO
== END ==
LOC: LAB 16:24
DX: R19.7 Diarrhea, unspecified (principal)

== ENCOUNTER 2024-06-09 22:27 | Emergency (ER) | payer MEDICARE ==
[~2024-06-09] VITALS: Ht 165.1 cm; Wt 8173.0 kg
[~2024-06-09 22:27] MED LIST changes: -CYCLOBENZAPRINE10 M1 PO; -IBUPROFEN600 M1 PO
[2024-06-09] MEDS ORDERED: IBUPROFEN600 M1 PO (22:37)
[2024-06-09] MEDS ORDERED: CYCLOBENZAPRINE10 M1 PO (22:38)
[2024-06-09 23:26] LABS: BASO # 0.02 K/mm3 (0.02-0.10); EOS % 2.1 % (1.0-5.0); HEMATOCRIT 39.8 % (37.0-47.0); HEMOGLOBIN 13.3 g/dL (12.5-16.0); LYMPH# 1.83 K/mm3 (1.50-4.00); MEAN CELL VOLUME 89 fl (78-100); MEAN CORPUSCULAR HEMOGLOBIN 30 pg (27-31); MEAN CORPUSCULAR HGB CONC 33 g/dL (33-37); MEAN PLATELET VOLUME 8.9 fl (7.4-10.4); MONO # 0.73 K/mm3 (0.20-0.80); NEU # 6.94 K/mm3 (1.40-6.50); PLATELET COUNT 251 K/mm3 (130-400); RED BLOOD COUNT 4.45 M/mm3 (4.10-5.30); RED CELL DISTRIBUTION WIDTH 12.3 % (11.5-14.5); WHITE BLOOD COUNT 9.7 K/mm3 (4.8-10.8)
[2024-06-09 23:34] LABS: ALBUMIN 4.2 g/dL (3.4-4.8); SODIUM 142 mmol/L (136-145)
[2024-06-09 23:36] LABS: CALCIUM 9.7 mg/dL (8.3-10.5)
[2024-06-09 23:37] LABS: GLUCOSE 151 mg/dL (65-105)
[2024-06-09 23:38] LABS: CARBON DIOXIDE 25 mmol/L (23-31)
[2024-06-09 23:39] LABS: TOTAL BILIRUBIN 0.3 mg/dL (0.2-1.2)
[2024-06-09 23:42] LABS: AST-SGOT 14 U/L (5-34)
[2024-06-09 23:43] LABS: ALT/SGPT 11 U/L (0-55)
[2024-06-09 23:49] LABS: TROPONIN-I < 0.030 ng/mL (0.00-0.033)
[2024-06-09 23:53] LABS: D-DIMER 0.52 mg/L FEU (0.15-0.50)
[2024-06-10] MEDS ORDERED: Iohexol 350 - 100 ML VIAL IV ONE (00:45)
[2024-06-10 01:46] VITALS: BP 152/89
[2024-06-11] MEDS ORDERED: TAMIFLU 75MG75 MG PO (20:41)
== END 2024-06-10 01:50 | disposition home or self-care (01) ==
LOC: ED 22:27
PROVIDERS: Nurse Practitioner Family
DX: R07.89 Other chest pain (principal); Z91.040 Latex allergy status
CPT/HCPCS: Q9967

== ENCOUNTER 2024-06-11 19:02 | Emergency (ER) | payer MEDICARE ==
[~2024-06-11] VITALS: Wt 82.3 kg
[~2024-06-11 19:02] MED LIST changes: +CYCLOBENZAPRINE10 M1 PO; +IBUPROFEN600 M1 PO
[2024-06-11] MEDS ORDERED: NS 1,000 ML IV ONE (19:30)
[2024-06-11] MEDS ORDERED: Ibuprofen 800 MG TAB PO ONE (19:30)
[2024-06-11 19:59] LABS: BASO # 0.01 K/mm3 (0.02-0.10); HEMATOCRIT 40.6 % (37.0-47.0); HEMOGLOBIN 13.4 g/dL (12.5-16.0); LYMPH# 0.64 K/mm3 (1.50-4.00); MEAN CELL VOLUME 90 fl (78-100); MEAN CORPUSCULAR HEMOGLOBIN 30 pg (27-31); MEAN CORPUSCULAR HGB CONC 33 g/dL (33-37); MONO # 0.83 K/mm3 (0.20-0.80); NEU # 4.61 K/mm3 (1.40-6.50); PLATELET COUNT 152 K/mm3 (130-400); RED CELL DISTRIBUTION WIDTH 12.4 % (11.5-14.5); WHITE BLOOD COUNT 6.1 K/mm3 (4.8-10.8)
[2024-06-11 20:02] LABS: ALBUMIN 4.1 g/dL (3.4-4.8)
[2024-06-11 20:03] LABS: CALCIUM 9.3 mg/dL (8.3-10.5)
[2024-06-11 20:06] LABS: TOTAL BILIRUBIN 0.6 mg/dL (0.2-1.2)
[2024-06-11] MEDS ORDERED: Oseltamivir 75 MG CAP PO ONE (20:30)
[2024-06-11] MEDS ORDERED: HYDROcodone/Chlorphen Polst ER Susp 10-8 MG/5 ML UD PO ONE (20:30)
[2024-06-11] MEDS ORDERED: TAMIFLU 75MG75 MG PO (20:41)
[2024-06-11 22:10] VITALS: BP 126/78
== END 2024-06-11 22:10 | disposition home or self-care (01) ==
LOC: ED 19:02
PROVIDERS: Family Medicine
DX: J10.1 Influenza due to other identified influenza virus with other respiratory manifestations (principal)
CPT/HCPCS: J7030

== ENCOUNTER → 2024-06-13 | Outpatient (CLI) | payer MEDICARE ==
[~2024-06-13] MED LIST changes: +TAMIFLU 75MG75 MG PO
== END ==
LOC: RAD 08:00
DX: M22.42 Chondromalacia patellae, left knee (principal)

== ENCOUNTER → 2024-06-17 | Outpatient (CLI) | payer MEDICARE | LOC: RAD 13:59 | DX: S82.002A Unspecified fracture of left patella, initial encounter for closed fracture (principal); S80.02XA Contusion of left knee, initial encounter; X58.XXXA Exposure to other specified factors, initial encounter ==

== ENCOUNTER 2024-07-09 10:58 | Outpatient (RCR) | payer MEDICARE | END 2024-08-07 | disposition home or self-care (01) | LOC: PT | DX: M25.562 Pain in left knee (principal) ==

== ENCOUNTER 2024-08-28 11:11 | Emergency (ER) | payer OTHER, MEDICARE ==
[~2024-08-28] VITALS: Ht 167.6 cm; Wt 80.9 kg
[~2024-08-28 11:11] MED LIST changes: -CYCLOBENZ5 MG PO
[2024-08-28] MEDS ORDERED: Cyclobenzaprine 10 MG TAB PO ONE (12:00)
[2024-08-28] MEDS ORDERED: oxyCODONE 5 MG TAB PO ONE (12:00)
[2024-08-28] MEDS ORDERED: CYCLOBENZ5 MG PO (12:53)
[2024-08-28 13:37] VITALS: BP 122/84
== END 2024-08-28 14:05 | disposition home or self-care (01) ==
LOC: ED 11:11
DX: S82.002A Unspecified fracture of left patella, initial encounter for closed fracture (principal); M25.512 Pain in left shoulder; S16.1XXA Strain of muscle, fascia and tendon at neck level, initial encounter; Z98.890 Other specified postprocedural states; Z91.040 Latex allergy status; V40.6XXA Car passenger injured in collision with pedestrian or animal in traffic accident, initial encounter; Y92.410 Unspecified street and highway as the place of occurrence of the external cause

== ENCOUNTER → 2024-08-28 | Outpatient (CLI) | payer MEDICARE ==
[~2024-08-28] MED LIST changes: +CYCLOBENZ5 MG PO
[2024-08-28 14:01] LABS: BASO # 0.03 K/mm3 (0.02-0.10); EOS # 0.22 K/mm3 (0.04-0.40); EOS % 3.9 % (1.0-5.0); HEMATOCRIT 33.8 % (37.0-47.0); HEMOGLOBIN 10.8 g/dL (12.5-16.0); LYMPH# 2.23 K/mm3 (1.50-4.00); MEAN CELL VOLUME 92 fl (78-100); MEAN CORPUSCULAR HEMOGLOBIN 29 pg (27-31); MEAN CORPUSCULAR HGB CONC 32 g/dL (33-37); MEAN PLATELET VOLUME 8.4 fl (7.4-10.4); MONO # 0.52 K/mm3 (0.20-0.80); NEU # 2.55 K/mm3 (1.40-6.50); PLATELET COUNT 320 K/mm3 (130-400); RED BLOOD COUNT 3.67 M/mm3 (4.10-5.30); RED CELL DISTRIBUTION WIDTH 12.7 % (11.5-14.5); WHITE BLOOD COUNT 5.6 K/mm3 (4.8-10.8)
[2024-08-28 14:17] LABS: CALCIUM 9.5 mg/dL (8.3-10.5)
[2024-08-28 14:19] LABS: TOTAL PROTEIN 6.7 g/dL (6.2-8.1)
[2024-08-28 14:21] LABS: TOTAL BILIRUBIN 0.6 mg/dL (0.2-1.2)
[2024-08-28 14:25] LABS: MAGNESIUM 2.16 mg/dL (1.60-2.60)
[2024-08-28 14:41] LABS: PH-URINE 5.5 (5.0 - 8.0); URINE APPEARANCE SLIGHTLY CLOUDY (CLEAR); URINE BILIRUBIN 1+ (NEGATIVE); URINE BLOOD NEGATIVE (NEGATIVE); URINE COLOR AMBER (YELLOW); URINE GLUCOSE NEGATIVE (NEGATIVE); URINE KETONE NEGATIVE (NEGATIVE); URINE LEUKOCYTE ESTERASE NEGATIVE (NEGATIVE); URINE NITRATE NEGATIVE (NEGATIVE); URINE PROTEIN(semi-quant) TRACE (NEGATIVE)
[2024-08-28 14:42] LABS: URINE MUCUS PRESENT (NOT PRESENT); URINE WBC 16-30 /hpf (0-3)
[2024-08-29 01:05] LABS: HEPATITIS C VIRUS ANTIBODY Nonreactive (Nonreactiv)
== END ==
LOC: LAB 13:36
PROVIDERS: Internal Medicine
DX: Z12.11 Encounter for screening for malignant neoplasm of colon (principal); Z11.59 Encounter for screening for other viral diseases; I10 Essential (primary) hypertension; K90.9 Intestinal malabsorption, unspecified; E78.2 Mixed hyperlipidemia; E11.9 Type 2 diabetes mellitus without complications

== ENCOUNTER → 2024-12-19 | Outpatient (CLI) | payer MEDICARE ==
[~2024-12-19] MED LIST changes: +CYCLOBENZ5 MG PO
== END ==
LOC: RAD 13:36
DX: M25.512 Pain in left shoulder (principal); R13.10 Dysphagia, unspecified; Z96.612 Presence of left artificial shoulder joint